=== PATIENT | female | born 1955 | race Caucasian/White ===

== ENCOUNTER 2017-08-23 07:11 | Emergency (ER) | payer BC ==
--- NOTE | 2017-08-23 07:48 | ER Document Report ---
ED General - General Chief Complaint: GI Bleeding Stated Complaint: ABDOMINAL PAIN Time Seen by Provider: 08/23/17 07:28 Mode of Arrival: Ambulatory Notes: Patient presents to emergency department for complaints of possible GI bleed. Patient reports that she has had a rotator cuff injury for the past couple months. She has been taking Aleve. She did stop the Aleve for the past 8-10 days but yesterday her shoulder was hurting her so she took an Aleve. She reports she had some epigastric pain last night. Took zantac. She reports she woke up around 0200 was diaphoretic felt very hot nauseated drank approximately 1-2 ounces of soda. Patient reports when she woke up this morning at 0600 she experienced for large black stools with streaks of blood. She denies abdominal pain. She reports urinary frequency. Denies chest pain, denies abdominal pain at this time. Denies history of GI Bleed. 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 TRAVEL OUTSIDE OF THE [place] IN LAST 30 DAYS: No - HPI Onset: This morning Onset/Duration: Sudden Quality of pain: No pain Pain Level: Denies Associated symptoms: Nausea, Other - diaphoretic Exacerbated by: Denies Relieved by: Denies Similar symptoms previously: No Recently seen / treated by doctor: No - Related Data Allergies/Adverse Reactions: benzoyl peroxide Allergy (Verified 08/23/17 07:18) diphenhydramine [From Benadryl] Allergy (Verified 08/23/17 07:18) nalbuphine [From Nubain] Allergy (Verified 08/23/17 07:18) niacin [From Niaspan Extended-Release] Allergy (Verified 08/23/17 07:18) oxycodone Allergy (Verified 08/23/17 07:18) sitagliptin [From Januvia] Allergy (Verified 08/23/17 07:18) Past Medical History - General Information source: Patient Last Menstrual Period: hyst - Social History Smoking Status: Unknown if Ever Smoked Cigarette use (# per day): No Frequency of alcohol use: None Drug Abuse: None Occupation: nurse Lives with: Family Family History: Reviewed & Not Pertinent Patient has suicidal ideation: No Patient has homicidal ideation: No Endocrine Medical History: Reports: Hx Diabetes Mellitus Type 2 Renal/ Medical History: Denies: Hx Peritoneal Dialysis Musculoskeltal Medical History: Reports Other - DJD, Spinal stenosis, trigger fingers Past Surgical History: Reports: Hx Appendectomy, Hx Cholecystectomy, Hx Gastric Bypass Surgery Review of Systems - Review of Systems Notes: Review HPI for review of systems., All other systems negative Physical Exam - Vital signs Vitals: Temp Pulse Resp BP Pulse Ox 97.6 F 90 16 125/64 96 08/23/17 07:19 08/23/17 07:19 08/23/17 07:19 08/23/17 07:19 08/23/17 07:19 - Notes Notes: PHYSICAL EXAMINATION: GENERAL: Well-appearing and in no acute distress HEAD: Atraumatic, normocephalic. EYES: Pupils equal round, extraocular movements intact, sclera anicteric, conjunctiva are normal. ENT: nares patent, Moist mucous membranes. NECK: Normal range of motion, supple without lymphadenopathy LUNGS: CTAB and equal. No wheezes rales or rhonchi. HEART: Regular rate and rhythm without murmurs ABDOMEN: Soft, no tenderness. No guarding, no rebound EXTREMITIES: Normal range of motion, no pitting edema. No cyanosis. NEUROLOGICAL: Cranial nerves grossly intact. Normal sensory/motor exams. PSYCH: Normal mood, normal affect. SKIN: Warm, Dry, normal turgor, no rashes or lesions noted - Rectal Tenderness: No Stool: Heme positive Hemorrhoids: External Course - Re-evaluation Re-evalutation: 08/23/17 09:07 H&H 11.2 and 31.8 no further stools. Patient denies abdominal pain. Discussed plan of care with patient. Patient is visiting from [place] reports she does have a GI provider at home. Patient would prefer to return to [place] for care. Will give patient p.o. fluids and crackers to assess repeat of stool. If patient remains stable with no further stool will plan to discharge for follow up with GI in [place]. - Vital Signs Vital signs: Temp Pulse Resp BP Pulse Ox 98 F 81 16 110/64 95 08/23/17 09:53 08/23/17 09:53 08/23/17 09:53 08/23/17 09:53 08/23/17 09:53 - Laboratory Result Diagrams: 08/23/17 08:06 08/23/17 08:06 Laboratory results interpreted by me: 08/23/17 08/23/17 08/23/17 08:06 08:06 08:14 Hgb 11.2 L Hct 31.8 L Seg Neutrophils % 79.7 H Lymphocytes % 11.6 L Chloride 108 H BUN 33 H Creatinine 0.50 L Glucose 192 H Total Protein 5.8 L Albumin 3.4 L Urine Glucose (UA) 50 H Ur Leukocyte Esterase TRACE H - EKG Interpretation by Me Rate: Normal Rhythm: NSR Discharge - Discharge Clinical Impression: Rectal bleeding Condition: Stable Disposition: HOME, SELF-CARE Instructions: Gastroenterology, Rectal Bleeding, Unclear Cause ([facility]) Additional Instructions: *You have been evaluated for rectal bleeding *Avoid NSAIDS *Take your zantac as prescribed *Follow up with your primary care provider within 3 days *Follow up with your sap bw bi developer Friday when you return to [place] *Return to ED for worsening condition, changes, needs, abdominal pain, further rectal bleeding *Return to ED if not better in 24 hours Monitor your blood pressure. Your blood pressure was elevated today. This may be because you were anxious, in pain or because you need medication. It is important to follow up with your primary care provider for full evaluation. Forms: Elevated Blood Pressure
[2017-08-23 08:18] LABS: ABSOLUTE BASOPHILS # (AUTO) 0.1 10^3/uL (0.0-0.2); ABSOLUTE EOSINOPHILS # (AUTO) 0.1 10^3/uL (0.0-0.6); ABSOLUTE LYMPHOCYTES (AUTO) 0.6 10^3/uL (0.5-4.7); ABSOLUTE MONOCYTES (AUTO) 0.3 10^3/uL (0.1-1.4); ABSOLUTE NEUT (AUTO) 4.3 10^3/uL (1.7-8.2); EOSINOPHILS % (AUTO) 1.9 % (0-6); HEMATOCRIT 31.8 % (36.0-47.0); HEMOGLOBIN 11.2 g/dL (12.0-15.5); HGB HCT DIFFERENCE 1.8; LYMPHOCYTES % (AUTO) 11.6 % (13-45); MEAN CORPUSCULAR HEMOGLOBIN 29.7 pg (27.0-33.4); MEAN CORPUSCULAR HGB CONC 35.3 g/dL (32.0-36.0); MEAN CORPUSCULAR VOLUME 84 fl (80-97); MONOCYTES % (AUTO) 5.8 % (3-13); RED BLOOD COUNT 3.78 10^6/uL (3.72-5.28); RED CELL DISTRIBUTION WIDTH 13.4 % (11.5-14.0); SEGMENTED NEUTROPHILS % (AUTO) 79.7 % (42-78); WHITE BLOOD COUNT 5.4 10^3/uL (4.0-10.5)
[2017-08-23 08:34] LABS: ALANINE AMINOTRANSFERASE 36 U/L (9-52); ALBUMIN 3.4 g/dL (3.5-5.0); ALKALINE PHOSPHATASE 97 U/L (38-126); ANION GAP 9 (5-19); ASPARTATE AMINO TRANSFERASE 18 U/L (14-36); BILIRUBIN,DIRECT 0.3 mg/dL (0.0-0.4); BILIRUBIN,TOTAL 0.6 mg/dL (0.2-1.3); BLOOD UREA NITROGEN 33 mg/dL (7-20); CALCIUM 8.5 mg/dL (8.4-10.2); CARBON DIOXIDE 25 mmol/L (22-30); CHLORIDE 108 mmol/L (98-107); CREATINE KINASE 43 U/L (30-135); GLUCOSE 192 mg/dL (75-110); POTASSIUM 4.6 mmol/L (3.6-5.0); SODIUM 141.8 mmol/L (137-145); TOTAL PROTEIN 5.8 g/dL (6.3-8.2)
[2017-08-23 08:38] LABS: APPEARANCE,URINE CLEAR; BILIRUBIN,URINE NEGATIVE (NEGATIVE); GLUCOSE, URINE 50 mg/dL (NEGATIVE); KETONES,URINE NEGATIVE (NEGATIVE); LEUKOCYTE ESTERASE,URINE TRACE (NEGATIVE); NITRITE,URINE NEGATIVE (NEGATIVE); PROTEIN,URINE NEGATIVE (NEGATIVE); URINE SPECIFIC GRAVITY 1.032; UROBILINOGEN,URINE NEGATIVE mg/dL (<2.0)
[2017-08-23 08:46] LABS: TROPONIN I < 0.012 ng/mL
[2017-08-23 09:54] VITALS: BP 110/64
--- NOTE | 2017-08-23 10:32 | EKG REPORT ---
SEVERITY:- NORMAL ECG - SINUS RHYTHM : Confirmed by: Mirtha Camargo MD 23-Aug-2017 10:31:47
== END 2017-08-23 09:53 | disposition home or self-care (01) ==
LOC: ER 07:11
DX: K92.2 Gastrointestinal hemorrhage, unspecified (principal); R10.13 Epigastric pain; R35.0 Frequency of micturition; Z79.899 Other long term (current) drug therapy
CPT/HCPCS: 36415; 80053; 81001; 82272; 82550; 82553; 84484; 85025; 86850; 86900; 86901; 93005; 93010; 99285